=== PATIENT | male | born 1990 | race Two or more races ===

== ENCOUNTER 2024-06-26 19:17 | Inpatient (IN) | payer OTHER ==
[~2024-06-26] VITALS: Ht 177.8 cm; Wt 129.3 kg
[~2024-06-26 19:17] MED LIST: SYNTHROID50 MCG PO
[2024-06-26] MEDS ORDERED: TESTIM5 GM TD (19:36)
[2024-06-26] MEDS ORDERED: LIPITOR40 M1 PO (19:36)
--- NOTE | 2024-06-26 19:38 | NUR ---
MASCULINO VERBALIZA PRESENTA DOLOR EN AREA DE LA PELVIS QUE IRRADIA A PARTE BAJA DE LA ESPALDA Y MOLESTIAS AL ORINAR. ADEMAS REFIERE PRESENTA SOLOR EN TESTICULO IZQ.
--- NOTE | 2024-06-26 21:06 | NUR ---
SE ORIENTA A PTE SOBRE [place] MEDICO Y EL MISMO REFIERE ENTENDER. SE RECOLECTAN MUESTRAS DE LAB NAKUL ORDEN MEDICA BAJO MEDIDAS ASEPTICAS.
[2024-06-26 21:17] LABS: HEMATOCRIT 49.5 % (39.0-48.0); HEMOGLOBIN 17.1 g/dL (13-16.00); MEAN CELL VOLUME 89.3 fL (80.0-100.00); MEAN CORPUSCULAR HEMOGLOBIN 30.9 pg (27.00-32.0); MEAN CORPUSCULAR HGB CONC 34.6 g/dl (32.0-36.0); PLATELET COUNT 280 K/uL (150-450); RED BLOOD COUNT 5.54 M/uL (4.00-6.00); RED CELL DISTRIBUTION WIDTH 13.5 % (11.5-14.5)
[2024-06-26 21:29] LABS: URINE APPEARANCE Clear; URINE BILIRRUBIN Negative (NEGATIVE); URINE BLOOD Negative; URINE COLOR Yellow; URINE GLUCOSE Negative (NEGATIVE); URINE KETONE Negative (NEGATIVE); URINE LEUKOCYTE Trace; URINE NITRATE Negative; URINE PROTEIN Negative (NEGATIVE)
[2024-06-26 21:33] LABS: URINE EPITHELIAL CELLS 9.4 uL (0.0-38.8); URINE RBC 6.4 uL (0.0-20.8); URINE WBC 45.5 uL (0.0-23.2)
[2024-06-26 21:40] LABS: CALCIUM 9.9 mg/dL (8.5-10.1); CREATININE SERUM 0.89 mg/dL (0.70-1.30); GFR 98.44; POTASSIUM 4.66 mEq/L (3.5-5.1)
[2024-06-26 21:46] LABS: URINE CAST 0.14 uL (0.0-1.40)
[2024-06-26] MEDS ORDERED: PIPERACILLIN/TAZOBACTAM SODIUM 3.375 GM VIAL IV STA (22:47)
[2024-06-26] MEDS ORDERED: KETOROLAC TROMETHAMINE 30 MG VIAL IV STA (22:48)
[2024-06-26] MEDS ORDERED: KETOROLAC TROMETHAMINE 30 MG VIAL ONE (23:08)
[2024-06-26] MEDS ORDERED: PIPERACILLIN/TAZOBACTAM SODIUM 3.375 GM VIAL IV ONE (23:08)
[2024-06-26] MEDS ORDERED: ACETAMINOPHEN 500 MG GEL..CAP PO PRN (23:45)
[2024-06-26] MEDS ORDERED: MORPHINE SULFATE 2 MG/ML CARTRIDGE IV SCH (23:45)
[2024-06-26] MEDS ORDERED: HYOSCYAMINE SULFATE 0.125 MG TAB.SUBL PO ONE (23:45)
[2024-06-26] MEDS ORDERED: ONDANSETRON HCL 4 MG in 0.9 % SODIUM CHLORIDE 50 ML IV PRN (23:45)
[2024-06-26] MEDS ORDERED: MORPHINE SULFATE 4 MG/ML CARTRIDGE IV PRN (23:45)
[2024-06-26] MEDS ORDERED: 0.9 % SODIUM CHLORIDE 1,000 ML IV SCH (23:45)
[2024-06-26] MEDS ORDERED: KETOROLAC TROMETHAMINE 15 MG VIAL IU ONE (23:45)
[2024-06-27] MEDS ORDERED: PIPERACILLIN/TAZOBACTAM SODIUM 3.375 GM in DEXTROSE 5 % IN WATER 100 ML IV SCH
[2024-06-27 03:07] VITALS: BP 128/84
[2024-06-27 03:53] LABS: INR 1.13; PROTHROMBIN TIME 12.2 SECONDS (9.0-11.5)
[2024-06-27 03:57] LABS: PARTIAL THROMBOPLASTIN TIME 39.2 SECONDS (22.0-34.0)
[2024-06-27 04:00] VITALS: BP 137/75; O2SAT 96
[2024-06-27] MEDS ORDERED: LEVOTHYROXINE SODIUM 50 MCG TABLET PO SCH (06:00)
[2024-06-27 08:55] VITALS: BP 129/93; O2SAT 96
[2024-06-27] MEDS ORDERED: FAMOTIDINE/PF 20 MG in 0.9 % SODIUM CHLORIDE 8 ML IV PUSH SCH (09:00)
[2024-06-27] MEDS ORDERED: ATORVASTATIN CALCIUM 40 MG TABLET PO SCH (09:00)
[2024-06-27] MEDS ORDERED: ENOXAPARIN SODIUM 40 MG/0.4 ML SYRINGE SUBCUTANEO SCH (09:00)
[2024-06-27 18:08] VITALS: BP 135/79
[2024-06-28 01:32] VITALS: BP 149/63
[2024-06-28 08:16] VITALS: BP 140/87; O2SAT 97
[2024-06-29] MEDS ORDERED: LEVOTHYROXINE SODIUM 50 MCG TABLET PO SCH (06:00)
== END 2024-06-28 13:33 | disposition home or self-care (01) | DRG 392 ==
LOC: ER 19:19 → MEDJ 23:51
PROVIDERS: General Practice; ADMIT Student in an Organized Health Care Education/Training Program; ATTEND Student in an Organized Health Care Education/Training Program
PROC: BW21ZZZ Computerized Tomography (CT Scan) of Abdomen and Pelvis (ICD-10-PCS; principal; 2024-06-26)
DX: K57.32 Diverticulitis of large intestine without perforation or abscess without bleeding (principal); R65.10 Systemic inflammatory response syndrome (SIRS) of non-infectious origin without acute organ dysfunction; E03.9 Hypothyroidism, unspecified; E78.5 Hyperlipidemia, unspecified